=== PATIENT | male | born 1965 | race Caucasian/White ===

== ENCOUNTER 2020-11-30 20:09 | Emergency (ER) | payer MEDICAID ==
[2020-11-30 20:36] LABS: BASOPHILS # (AUTO) 0.1 10^3/uL (0.0-0.1); BASOPHILS % (AUTO) 0.4 %; EOSINOPHILS # (AUTO) 0.1 10^3/uL (0.0-0.7); EOSINOPHILS % (AUTO) 1.2 %; HCT - HEMATOCRIT 44.2 % (42.0-52.0); HGB - HEMOGLOBIN 15.4 g/dL (14.0-18.0); LYMPHOCYTES # (AUTO) 3.6 10^3/uL (1.5-3.5); MEAN CORPUSCULAR HEMOGLOBIN 31.8 pg (27.0-31.0); MEAN CORPUSCULAR HGB CONC 34.8 g/dL (32.0-36.0); MEAN CORPUSCULAR VOLUME 91.3 fL (80.0-94.0); MEAN PLATELET VOLUME 10.2 fL (7.4-11.4); MONOCYTES # (AUTO) 0.6 10^3/uL (0.0-1.0); MONOCYTES % (AUTO) 5.1 %; NEUTROPHILS # (AUTO) 7.1 10^3/uL (1.5-6.6); PLT - PLATELET COUNT 238 10^3/uL (130-450); RED BLOOD COUNT 4.84 10^6/uL (4.70-6.10); WHITE BLOOD COUNT 11.5 x10^3/uL (4.8-10.8)
--- NOTE | 2020-11-30 20:38 | ED Physician Documentation ---
History of Present Illness - Stated complaint Stated Complaint: CP - Chief complaint Chief Complaint: Cardiac - Additonal information Additional information: 55-year-old male presents emergency department for evaluation of 12 days chest pressure/pain. Patient reports that it began about 12 days ago and he did not think much of it but over the last week and especially this weekend it has become more persistent. It is nonradiating. No jaw or arm pain no diaphoresis. It is not worsened with exertion however when he takes a deep breath he does feel it more acutely. He denies cough congestion or fevers. Patient is a non-smoker. He is not treated for hypertension but reports that he is always told that he has borderline blood pressures when he visits the doctor. No family history of sudden or early coronary artery disease. Patient recently traveled to [facility] for a wedding. He has no unilateral leg swelling no hormone use. No history of blood clots or cancer. Review of Systems Constitutional: denies: Fever, Chills Eyes: reports: Reviewed and negative Ears: reports: Reviewed and negative Nose: reports: Reviewed and negative Throat: reports: Reviewed and negative Cardiac: reports: Chest pain / pressure. denies: Palpitations, Pedal edema, C khalida pain Respiratory: reports: Reviewed and negative GI: reports: Reviewed and negative : reports: Reviewed and negative Skin: reports: Reviewed and negative Musculoskeletal: reports: Reviewed and negative Neurologic: reports: Reviewed and negative PD PAST MEDICAL HISTORY - Present Medications Home Medications: Ambulatory Orders Medication Instructions Recorded Confirmed No Known Home Medications 11/30/20 11/30/20 - Allergies Allergies/Adverse Reactions: Allergies Allergy/AdvReac Type Severity Reaction Status Date / Time ampicillin Allergy Unknown Verified 11/30/20 20:22 Penicillins Allergy Unknown Verified 11/30/20 20:22 PD ED PE EXPANDED - General General: Alert, No acute distress - HEENT HEENT: Atraumatic, PERRL - Neck Neck: Supple w/out meningeal sx. No: Adenopathy - Cardiac Cardiac: Regular Rate, Radial strong equal, Pedal strong equal, Cap refill < 2 sec, Chest wall TTP - Respiratory Respiratory: Clear to ausultation joy. No: Distress, Labored - Abdomen Abdomen: Normal Bowel sounds. No: Tender to palpation - Derm Derm: Normal color, Warm and dry. No: Rash - Extremities Extremities: Normal. No: Deformity, Tenderness - Neuro Neuro: Alert and Oriented X 3, CNII-XII intact - GCS Eye Opening: Spontaneous Motor: Obeys Commands Verbal: Oriented Total: 15 Results - Vitals Vitals: Vital Signs - 24 hr 11/30/20 20:16 Temperature 36.7 C Heart Rate 75 Respiratory 18 Rate Blood Pressure 175/104 H O2 Saturation 98 Oxygen O2 Source Room air - EKG (time done) 2011 Rate: Rate (enter#) (75) Rhythm: NSR [place]: Normal Intervals: Normal CT QRS: Normal Ischemia: Normal ST segments Compare to prior EKG: Old EKG unavailable Computer interpretation: Agree with computer - Labs Labs: Laboratory Tests 11/30/20 11/30/20 11/30/20 20:29 20:29 20:29 WBC 11.5 H RBC 4.84 Hgb 15.4 Hct 44.2 MCV 91.3 MCH 31.8 H MCHC 34.8 RDW 12.0 Plt Count 238 MPV 10.2 Neut # (Auto) 7.1 H Lymph # (Auto) 3.6 H [place] # (Auto) 0.6 Eos # (Auto) 0.1 Baso # (Auto) 0.1 Absolute Nucleated RBC 0.00 Nucleated RBC % 0.0 D-Dimer Sodium 134 L Potassium 3.4 L Chloride 99 L Carbon Dioxide 26 Anion Gap 9.0 BUN 20 Creatinine 0.9 Estimated GFR (MDRD) 88 L Glucose 116 H Calcium 9.2 Total Bilirubin 1.1 H AST 18 ALT 28 Alkaline Phosphatase 41 L Troponin I High Sens 3.1 Total Protein 7.3 Albumin 4.3 Globulin 3.0 Albumin/Globulin Ratio 1.4 Lipase 26 TSH 11/30/20 11/30/20 20:29 20:29 WBC RBC Hgb Hct MCV MCH MCHC RDW Plt Count MPV Neut # (Auto) Lymph # (Auto) [place] # (Auto) Eos # (Auto) Baso # (Auto) Absolute Nucleated RBC Nucleated RBC % D-Dimer 207.6 Sodium Potassium Chloride Carbon Dioxide Anion Gap BUN Creatinine Estimated GFR (MDRD) Glucose Calcium Total Bilirubin AST ALT Alkaline Phosphatase Troponin I High Sens Total Protein Albumin Globulin Albumin/Globulin Ratio Lipase TSH 2.54 - Rads (name of study) CXR Radiology: Final report received (No acute cardiopulmonary process.) PD MEDICAL DECISION MAKING - ED course Complexity details: reviewed results, re-evaluated patient, considered differential, d/w patient ED course: 55-year-old male presents the emergency department for evaluation of 12 days intermittent left-sided chest pain and pressure. He denies any exertional component to the chest pain but did report that it hurts to take a deep breath. D-dimer is not elevated and by Wells criteria he is otherwise low risk for PE. Therefore CT pulmonary angio was deferred. I was able to reproduce most of the chest pain with palpation, this may be MSK Patient is noted to have moderately elevated blood pressure here in the emergency department but has never been treated for hypertension. He is a non- smoker. Screening EKG is nonischemic without any chronic changes or findings. No findings of LVH. High-sensitivity troponin is not elevated. Otherwise screening CBC and electrolytes are without worrisome findings. Chest x-ray shows no cardiomegaly or focal opacities consistent with heart failure or pneumonia. Patient's heart score is 3 making him low risk for MACE. I have advised close follow-up with his primary care provider. He would benefit from an outpatient stress test and echocardiogram. Emergent return precautions were discussed for worsening chest pain, shortness of air fainting episodes or failure of symptoms to improve. Departure - Departure Disposition: Home, Self Care Clinical Impression: Elevated blood pressure reading without diagnosis of hypertension Chest pain Qualifiers: Chest pain type: unspecified Qualified Code(s): R07.9 - Chest pain, unspecified Condition: Stable Record reviewed to determine appropriate education?: Yes Instructions: ED Chest Pain Atypical Unkn Cause Follow-Up: BEATRIZ MONTEZ ARNP [Physician No Access] - Comments: Gabriele ying are seen in the emergency department today for chest pain. As we discussed your screening labs, EKG and chest x-ray are all essentially normal and without worrisome findings. You were noted to have moderately elevated blood pressure here in the emergency department today. This is seemingly your only known risk factor outside of age for heart disease. I would like you to discuss this ED visit with your primary care provider. You may benefit from an outpatient stress test and echocardiogram. If at any point you develop fevers, cough, shortness of air or chest pain that worsens especially with exertion or have any fainting episodes then please re turn immediately to the emergency department.
[2020-11-30 20:51] LABS: ALBUMIN 4.3 g/dL (3.2-5.5); ALBUMIN/GLOBULIN RATIO 1.4 (1.0-2.2); BILIRUBIN,TOTAL 1.1 mg/dL (0.2-1.0); CALCIUM 9.2 mg/dL (8.5-10.3); CREATININE 0.9 mg/dL (0.6-1.2); POTASSIUM 3.4 mmol/L (3.5-5.0); TOTAL PROTEIN 7.3 g/dL (6.7-8.2)
--- NOTE | 2020-11-30 21:04 | XRAY Report ---
PROCEDURE: Chest 1 View X-Ray INDICATIONS: Chest Pain TECHNIQUE: One view of the chest was acquired. COMPARISON: None. FINDINGS: Surgical changes and devices: None. Lungs and pleura: No pleural effusions or pneumothorax. Lungs are clear. Mediastinum: Mediastinal contours appear normal. Heart size is normal. Bones and chest wall: No suspicious bony lesions. Overlying soft tissues appear unremarkable. IMPRESSION: No acute disease. Reviewed by: Scottie Coleman MD on 11/30/2020 9:03 PM PDT Approved by: Scottie Coleman MD on 11/30/2020 9:03 PM PDT Station ID: [id number]
[2020-11-30 21:48] VITALS: BP 135/97
== END 2020-11-30 21:47 | disposition home or self-care (01) ==
LOC: ED 20:09
DX: R07.89 Other chest pain (principal); R03.0 Elevated blood-pressure reading, without diagnosis of hypertension
CPT/HCPCS: 36415; 80053; 83690; 84443; 84484; 85025; 85379; 93005; 99284

== ENCOUNTER 2021-03-21 18:44 | Emergency (ER) | payer MEDICAID ==
--- NOTE | 2021-03-21 19:09 | ED Physician Documentation ---
PD HPI CHEST PAIN - Stated complaint Stated Complaint: CP - Chief complaint Chief Complaint: Cardiac - History obtained from History obtained from: Patient - History of Present Illness Timing - onset: Today Timing - onset during: Rest Timing - duration: Days (3) Timing - details: Gradual onset, Constant Pain level max: 5 Pain level now: 5 Quality: Pressure, Tightness Location: Substernal Radiation: No: Jaw, Neck, Back, Abdominal, Left upper extremity, Right upper extremity Improved by: Rest Worsened by: Inspiration Associated symptoms: No: Shortness of air, Diaphoresis, Nausea, Vomiting, Feeling faint / dizzy, General Weakness, Palpitations, Cough - Additional information Additional information: Patient states he had similar symptoms about 3 months ago. States he underwent a full cardiac evaluation including stress testing. He states all of his testing has been normal. Review of Systems Constitutional: denies: Fever, Chills Nose: denies: Rhinorrhea / runny nose, Congestion Respiratory: denies: Cough GI: denies: Nausea, Vomiting, Diarrhea Skin: denies: Rash Musculoskeletal: denies: Neck pain, Back pain PD PAST MEDICAL HISTORY - Past Medical History Past Medical History: Yes Cardiovascular: Hypertension - Past Surgical History Past Surgical History: No - Present Medications Home Medications: Ambulatory Orders Medication Instructions Recorded Confirmed No Known Home Medications 11/30/20 11/30/20 - Allergies Allergies/Adverse Reactions: Allergies Allergy/AdvReac Type Severity Reaction Status Date / Time ampicillin Allergy Unknown Verified 03/21/21 18:54 Penicillins Allergy Unknown Verified 03/21/21 18:54 - Living Situation Living Situation: reports: With family Living Arrangement: reports: At home - Social History Does the pt smoke?: No Does the pt have substance abuse?: No - Family History Family history: reports: Non contributory PD ED PE NORMAL - Vitals Vital signs reviewed: Yes - General General: Alert and oriented X 3, No acute distress, Well developed/nourished - HEENT HEENT: Moist mucous membranes - Neck Neck: Supple, no meningeal sign - Cardiac Cardiac: RRR, No murmur, Strong equal pulses - Respiratory Respiratory: No respiratory distress, Clear bilaterally - Abdomen Abdomen: Soft, Non tender, Non distended - Back Back: No CVA TTP, No spinal TTP - Derm Derm: Warm and dry, No rash - Extremities Extremities: No edema, No calf tenderness / cord - Neuro Neuro: Alert and oriented X 3 - Psych Psych: Normal mood, Normal affect Results - Vitals Vitals: Oxygen O2 Source Room air - EKG (time done) 1850 Rate: Rate (enter#) (65) Rhythm: NSR [place]: Normal Intervals: Normal [place] QRS: Normal Ischemia: Normal ST segments - Labs Labs: Laboratory Tests 03/21/21 03/21/21 03/21/21 19:10 19:10 19:10 WBC 10.0 RBC 4.67 L Hgb 14.3 Hct 42.5 MCV 91.0 MCH 30.6 MCHC 33.6 RDW 11.8 L Plt Count 256 MPV 10.5 Neut # (Auto) 5.5 Lymph # (Auto) 3.5 [place] # (Auto) 0.7 Eos # (Auto) 0.2 Baso # (Auto) 0.1 Absolute Nucleated RBC 0.00 Nucleated RBC % 0.0 Sodium 135 Potassium 3.6 Chloride 100 L Carbon Dioxide 26 Anion Gap 9.0 BUN 21 H Creatinine 1.0 Estimated GFR (MDRD) 78 L Glucose 96 Calcium 9.2 Total Bilirubin 1.1 H AST 25 ALT 38 Alkaline Phosphatase 46 Troponin I High Sens 3.3 Total Protein 7.3 Albumin 4.3 Globulin 3.0 Albumin/Globulin Ratio 1.4 Lipase 29 - Rads (name of study) cxr Radiology: Final report received, EMP read contemporaneously, See rad report (No acute abnormality) PD MEDICAL DECISION MAKING - ED course Complexity details: reviewed results, re-evaluated patient, considered differential (No ST elevation [place], no aortic dissection, no PE, no tension pneumothorax, no aortic aneurysm), d/w patient ED course: 55-year-old male with chest pain. Recently had a negative cardiac stress test. No acute findings on EKG, laboratory testing or telemetry. Not much change with an inhaler. Unclear etiology. We will have him follow-up with his doctor for further care. Possible GI etiology? Patient counseled regarding signs and symptoms for which I believe and urgent re-evaluation would be necessary. Patient with good understanding of and agreement to plan and is comfortable g oing home at this time This document was made in part using voice recognition software. While efforts are made to proofread this document, sound alike and grammatical errors may occur. Departure - Departure Disposition: Home, Self Care Clinical Impression: Chest pain Qualifiers: Chest pain type: unspecified Qualified Code(s): R07.9 - Chest pain, unspecified Condition: Good Instructions: ED Chest Pain Atypical Unkn Cause Follow-Up: Your,doctor in 1 week [Other] Comments: Please follow-up with your doctor within the next week for repeat evaluation. Return if you worsen. Your testing does not show any acute abnormalities tonight. Discharge Date/Time: 03/21/21 20:31
[2021-03-21 19:16] LABS: BASOPHILS # (AUTO) 0.1 10^3/uL (0.0-0.1); BASOPHILS % (AUTO) 0.5 %; EOSINOPHILS # (AUTO) 0.2 10^3/uL (0.0-0.7); EOSINOPHILS % (AUTO) 1.9 %; HCT - HEMATOCRIT 42.5 % (42.0-52.0); HGB - HEMOGLOBIN 14.3 g/dL (14.0-18.0); LYMPHOCYTES # (AUTO) 3.5 10^3/uL (1.5-3.5); MEAN CORPUSCULAR HEMOGLOBIN 30.6 pg (27.0-31.0); MEAN CORPUSCULAR HGB CONC 33.6 g/dL (32.0-36.0); MEAN PLATELET VOLUME 10.5 fL (7.4-11.4); MONOCYTES # (AUTO) 0.7 10^3/uL (0.0-1.0); MONOCYTES % (AUTO) 7.2 %; NEUTROPHILS # (AUTO) 5.5 10^3/uL (1.5-6.6); NEUTROPHILS % (AUTO) 54.9 %; PLT - PLATELET COUNT 256 10^3/uL (130-450); RED BLOOD COUNT 4.67 10^6/uL (4.70-6.10); RED CELL DISTRIBUTION WIDTH 11.8 % (12.0-15.0)
[2021-03-21 19:31] LABS: ALBUMIN 4.3 g/dL (3.2-5.5); ALBUMIN/GLOBULIN RATIO 1.4 (1.0-2.2); BILIRUBIN,TOTAL 1.1 mg/dL (0.2-1.0); CALCIUM 9.2 mg/dL (8.5-10.3); POTASSIUM 3.6 mmol/L (3.5-5.0); TOTAL PROTEIN 7.3 g/dL (6.7-8.2)
[2021-03-21] MEDS ORDERED: ALBUTEROL 1 PUFF INH STA (19:33)
--- NOTE | 2021-03-21 20:17 | XRAY Report ---
PROCEDURE: Chest 1 View X-Ray INDICATIONS: Chest pain TECHNIQUE: One view of the chest was acquired. COMPARISON: None FINDINGS: Surgical changes and devices: None. Lungs and pleura: No pleural effusions or pneumothorax. Lungs are clear. Mediastinum: Mediastinal contours appear normal. Heart size is normal. Bones and chest wall: No suspicious bony lesions. Overlying soft tissues appear unremarkable. IMPRESSION: No acute finding. Reviewed by: You Matos MD on 03/21/2021 8:16 PM PDT Approved by: You Matos MD on 03/21/2021 8:16 PM PDT Station ID: [id number]
[2021-03-21 20:31] VITALS: BP 143/99
== END 2021-03-21 20:31 | disposition home or self-care (01) ==
LOC: ED 18:44
DX: R07.9 Chest pain, unspecified (principal)
CPT/HCPCS: 36415; 80053; 83690; 84484; 85025; 93005; 94640; 99284